=== PATIENT | male | born 1975 | race Two or more races ===

== ENCOUNTER 2021-03-18 19:52 | Emergency (ER) | payer BC ==
[~2021-03-18] VITALS: Ht 172.7 cm; Wt 68.0 kg
[2021-03-18] MEDS ORDERED: SOTROVIMAB 500 MG in SODIUM CHLORIDE 0.9% 100 ML IV ONE (20:15)
[2021-03-18 20:59] VITALS: BP 142/84
== END 2021-03-18 21:35 | disposition home or self-care (01) ==
LOC: ER 20:09 → EDBD 20:09 → ER 21:35
DX: U07.1 COVID-19 (principal); R05.9 Cough, unspecified; Z94.0 Kidney transplant status
CPT/HCPCS: 99283; J7050; U0002